=== PATIENT | female | born 1985 | race Hispanic/Latino ===

== ENCOUNTER 2024-08-29 06:57 | Emergency (ER) | payer SELFPAY ==
[2024-08-29 07:27] LABS: Absolute Eosinophils 0.1 K/uL (0-0.5); Absolute Lymphocytes (CBC) 2.5 K/uL (0.7-4.9); Absolute Monocytes 0.4 K/uL (0.1-1.3); Absolute Neutrophil 3.1 K/uL (1.8-8.0); Basophils % 0.3 % (0-1.3); Eosinophils % 1.1 % (0-4.4); Hematocrit 38.3 % (36.0-45.0); Hemoglobin 13.3 g/dL (12.0-15.0); Lymphocytes % 40.6 % (15.3-44.8); MCHC 34.8 g/dL (32.0-36.0); MPV 8.9 fL (7.6-11.3); Nucleated Red Blood Cells % 0.1 % (0-0); Platelets 202 thou/uL (152-406); Red Cell Distribution Width 12.7 % (12.1-15.2)
--- NOTE | 2024-08-29 07:37 | RAD REPORT ---
EXAM: Chest Single View HISTORY: 39 years Female CHEST PAIN COMPARISON: None. FINDINGS: LUNGS/PLEURA: The lungs are clear. No pleural effusions or pneumothorax. No pulmonary edema. CARDIAC/MEDIASTINUM: The cardiac silhouette is within normal limits. UPPER ABDOMEN: No significant abnormality. BONES: No acute abnormality. LINES/TUBES/OTHER: N/A IMPRESSION: No evidence of acute cardiopulmonary disease.
[2024-08-29 07:49] LABS: Anion Gap 9.6 mEq/L (5.0-15.0); BUN Blood Urea Nitrogen 9 mg/dL (7-18); Bicarbonate 26 mEq/L (21-32); Glomerular Filtration Rate 112 ml/min (=/>90); Glucose Level 99 mg/dL (74-106); NT PRO-BNP 56 pg/mL (<125); Potassium 3.6 mEq/L (3.5-5.1); Sodium Level 138 mEq/L (136-145)
[2024-08-29 07:56] LABS: Specific Gravity 1.017 (1.005-1.030)
[2024-08-29 07:57] LABS: Troponin High Sensitivity < 3.0 pg/mL (<58.9)
[2024-08-29 07:59] LABS: Specific Gravity 1.018 (1.005-1.030); Sqamous Epithelial <5 /HPF (None Seen); Urine Bacteria None Seen /HPF (<20); Urine Bilirubin NEGATIVE (Negative); Urine Blood Negative (Negative); Urine Clarity Turbid (Clear); Urine Color Light-Yellow (Yellow); Urine Culture Reflex Order NOT NEEDED; Urine Glucose NEGATIVE (Negative); Urine Ketones NEGATIVE (Negative); Urine Microscopic Reflex YN ORDER UMIC; Urine Mucus Slight /HPF (None Seen); Urine Nitrite NEGATIVE (Negative); Urine Protein NEGATIVE (Negative); Urine RBC <5 /HPF (None Seen); Urine Urobilinogen Normal (Normal); Urine WBC <5 /HPF (<5); Urine pH 5.5 (5.0-7.0)
[2024-08-29] MEDS ORDERED: NA CHLORIDE 0.9% 500 ML ONE (08:07)
[2024-08-29] MEDS ORDERED: MAGNES/ALUMIN/SIMET 30ML UCUP ONE (08:58)
[2024-08-29] MEDS ORDERED: KETOROLAC 30 MG/ML INJ ONE (08:58)
[2024-08-29] MEDS ORDERED: FAMOTIDINE 20 MG/2 ML VIAL IV ONE (08:58)
[2024-08-29] MEDS ORDERED: LIDOCAINE VISCOUS 2% 10ML ORAL SOLN ONE (08:58)
--- NOTE | 2024-08-29 09:25 | EDPHYS ---
Physician Documentation [facility] Name: Kendall Barba Age: 39 yrs Sex: Female : 1985 Arrival Date: 08/29/2024 Time: 06:57 Bed 6 Private MD: ED Physician Aly Belcher HPI: 08/29 07:30 This 39 yrs old Female presents to ER via Ambulatory with complaints of Chest rn Pain. 07:30 The patient or guardian reports chest pain that is located primarily in the anterior rn chest wall, left. 07:30 Onset: last night. The pain radiates to the left arm. The chest pain is described as rn sharp. Duration: The patient or guardian reports multiple episodes. Modifying factors: The symptoms are alleviated by nothing. the symptoms are aggravated by deep breath. Severity of pain: At its worst the pain was mild in the emergency department the pain is unchanged. The patient has not experienced similar symptoms in the past. Patient reports left-sided chest pain that radiates to left arm, has been happening intermittently over the last week. Patient reports other episodes that she feels lightheaded and dizzy. No shortness of breath. No recent illness or fever. No cough. No history of DVT or PE. No abdominal pain. No recent surgery. No leg swelling or pain. No hemoptysis. Does not smoke or vape.. Historical: - Allergies: 07:20 No Known Allergies; iw - Home Meds: 07:20 None [Active]; iw - PMHx: 07:20 None; iw - PSHx: 07:20 Cholecystectomy; iw - Immunization history:: Adult Immunizations up to date. - Infectious Disease History:: Denies. - Social history:: Smoking status: Patient denies any tobacco usage or history of. - Family history:: not pertinent. - Hospitalizations: : No recent hospitalization is reported. ROS: 07:30 Constitutional: Negative for fever, chills, and weight loss, Neck: Negative for injury, rn pain, and swelling, Cardiovascular: Negative for palpitations, and edema, Respiratory: Negative for shortness of breath, cough, wheezing, and pleuritic chest pain, Abdomen/GI: Negative for abdominal pain, nausea, vomiting, diarrhea, and constipation, MS/Extremity: Negative for injury and deformity, Skin: Negative for injury, rash, and discoloration, Neuro: Negative for headache, weakness, numbness, tingling, and seizure, Exam: 07:21 ECG was reviewed by the Attending Physician. rn 07:30 Constitutional: This is a well developed, well nourished patient who is awake, alert, rn and in no acute distress. Ambulatory to room without difficulty or assistance Cardiovascular: Regular rate and rhythm. No pulse deficits. Respiratory: No increased work of breathing, no retractions or nasal flaring. Abdomen/GI: Soft, non-tender MS/ Extremity: Pulses equal, no cyanosis. Neuro: Awake and alert, GCS 15 Vital Signs: 07:18 BP 121 / 69; Pulse 89; Resp 16; Pulse Ox 99% on R/A; Pain 5/10; iw 07:48 BP 98 / 64; Pulse 75; Resp 17; Temp 98.1; Pulse Ox 99% on R/A; iw 08:45 BP 103 / 62; Pulse 63; Resp 16; Pulse Ox 98% on R/A; iw 09:03 BP 102 / 83; Pulse 80; Resp 16; Pulse Ox 100% on R/A; Pain 6/10; hb 07:18 Pain Scale: Adult iw 09:03 Pain Scale: Adult hb MDM: 07:03 Medical Screening Exam initiated rn 09:23 Differential diagnosis: acute myocardial infarction, acute pericarditis, anxiety, rn costochondritis, esophagitis, gastritis, gastroesophageal reflux disease (GERD), pancreatitis, peptic ulcer disease, pleurisy, pneumonia, pneumothorax, pulmonary embolus. HEART Score: History: Slightly Suspicious (0), ECG: Normal (0), Age: < or = 45 years (0), Risk Factors: No Risk Factors Known (0), Troponin: < or = 1 x Normal Limit (0), Total Score = 0. Data reviewed: vital signs, nurses notes, lab test result(s), EKG, radiologic studies, plain films, and as a result, I will discharge patient. Counseling: I had a detailed discussion with the patient and/or guardian regarding the historical points, exam findings, and any diagnostic results supporting the discharge/admit diagnosis, lab results, radiology results, the need for outpatient follow up, to return to the emergency department if symptoms worsen or persist or if there are any questions or concerns that arise at home. Special discussion: Based on the patient's history, exam, and Dx evaluation, there is no indication for emergent intervention or inpatient Tx. It is understood by the patient/guardian that if the Sx's persist or worsen they need to return immediately for re-evaluation. I discussed with the patient/guardian in detail that at this point there is no indication for admission to the hospital. It is understood, however, that if the symptoms persist or worsen the patient needs to return immediately for re-evaluation. Based on the history and exam findings, there is no indication for further emergent testing or inpatient evaluation. I discussed with the patient/guardian the need to see the repairer cylinder heads for further evaluation of the symptoms. I discussed with the patient/guardian the need to see the primary care provider for further evaluation of the symptoms. ED course: No acute findings on workup, troponin negative x 2. Normal ECG. Recommend PCP and cardiology follow-up to rule out other causes of chest pain. Patient improved after GI cocktail. I have personally reviewed all of the results, including but not limited to blood tests and imaging deemed necessary to safely discharge this patient at this time. All results given to and printed out for patient. I personally went over all the results with the patient and answered all questions. Patient will follow-up with PCP and or specialist as discussed. Return precautions given and understood.. 09:32 ED course: Patient also reports just started exercising and going to the gym, could be rn muscular in origin with the pain with inspiration. Will follow-up with PCP for further guidance.. 08/29 07:14 Order name: Basic Metabolic Panel; Complete Time: 08/29 07:14 Order name: CBC with Diff; Complete Time: 08/29 07:14 Order name: D-Dimer; Complete Time: 08/29 07:14 Order name: NT PRO-BNP; Complete Time: 08/29 07:14 Order name: Troponin HS; Complete Time: 08/29 07:14 Order name: Test, Urine; Complete Time: 08/29 07:14 Order name: Urinalysis w/ reflexes; Complete Time: 08/29 08:52 Order name: Troponin High Sensitivity; Complete Time: 09:23 08/29 07:14 Order name: XRAY Chest (1 view); Complete Time: :26 07:14 Order name: Cardiac monitoring; Complete Time: : rn 08/29 07:14 Order name: EKG - Nurse/Tech; Complete Time: rn 08/29 07:14 Order name: IV Saline Lock; Complete Time: rn 08/29 07:14 Order name: Labs collected and sent; Complete Time: rn 08/29 07:14 Order name: O2 Per Protocol; Complete Time: rn 08/29 07:14 Order name: O2 Sat Monitoring; Complete Time: rn EC:21 Rate is 78 beats/min. Rhythm is regular. QRS [place] is Normal. IA interval is normal. QRS rn interval is normal. QT interval is normal. No Q waves. T waves are Normal. No ST changes noted. Clinical impression: Normal ECG. Interpreted by me. Reviewed by me. Administered Medications: 08:19 Drug: NS 0.9% IV 500 ml 500 ml IV at 1 bolus once; to be given as a bolus over 30 iw minutes Volume: 500 ml; Route: IV; Rate: 1 bolus; Site: right antecubital; 08:56 Follow up: Response: No adverse reaction; IV Status: Completed infusion; IV Intake: hb 500ml 09:03 Drug: Famotidine IVP 20 mg IVP once; dilute with 10 mL 0.9% NaCl; give over 2 minutes hb Route: IVP; Site: right antecubital; 09:36 Follow up: Response: No adverse reaction hb 09:03 Drug: GI Cocktail without - (Maalox PO 30 ml, Lidocaine Mucous Membrane 2 % 15 hb ml) PO once Route: PO; 09:36 Follow up: Response: No adverse reaction hb 09:03 Drug: Ketorolac IVP 15 mg IVP once Route: IVP; Site: right antecubital; hb 09:36 Follow up: Response: No adverse reaction hb Disposition Summary: 08/29/24 09:24 Discharge Ordered Notes: Location: Home rn Problem: new rn Symptoms: have improved rn Condition: Stable rn Diagnosis - Chest pain, unspecified rn Followup: rn - With: Private Physician - When: As needed - Reason: Recheck today's complaints, Re-evaluation by your physician Discharge Instructions: - Discharge Summary Sheet rn - Nonspecific Chest Pain, Adult rn - Pain Without a Known Cause rn Forms: - Medication Reconciliation Form rn - Antibiotic internet media planner - Prescription Opioid Use rn - Patient Portal Instructions rn - Leadership Thank You Letter rn Signatures: Dispatcher [employer] Kendra Skinner, Aly Rodriguez RN, MD MD rn Baxter, Heather, RN RN Corrections: (The following items were deleted from the chart) 07:14 07:14 BASIC METABOLIC PANEL+C.LAB.BRZ ordered. EDMS EDMS 07:14 07:14 CBC+H.LAB.BRZ ordered. EDMS EDMS 07:14 07:14 D-DIMER+COAG.LAB.BRZ ordered. EDMS EDMS 07:14 07:14 PROBNP+C.LAB.BRZ ordered. EDMS EDMS 07:14 07:14 Troponin High Sensitivity+C.LAB.BRZ ordered. EDMS EDMS 07:14 07:14 Chest Single View+RAD.RAD.BRZ ordered. EDMS EDMS
--- NOTE | 2024-08-29 09:25 | ER ---
Nurse's Notes [facility] Name: Kendall Barba Age: 39 yrs Sex: Female : 1985 Arrival Date: 08/29/2024 Time: 06:57 Bed 6 Private MD: Diagnosis: Chest pain, unspecified Presentation: 08/29 07:18 Chief complaint: Patient states: woke up with left sided chest pain radiating to left iw arm, worse when taking a deep breath , no injury, no cough, yesterday she felt dizzy and SOB. Coronavirus screen: At this time, the client does not indicate any symptoms associated with coronavirus-19. Ebola Screen: No symptoms or risks identified at this time. Initial Sepsis Screen: Does the patient meet any 2 criteria? No. Patient's initial sepsis screen is negative. Does the patient have a suspected source of infection? No. Patient's initial sepsis screen is negative. Risk Assessment: Do you want to hurt yourself or someone else? Patient reports no desire to harm self or others. Onset of symptoms was August 29, 2024. 07:18 Method Of Arrival: Ambulatory iw 07:18 Acuity: RICKEY 3 iw Historical: - Allergies: 07:20 No Known Allergies; iw - Home Meds: 07:20 None [Active]; iw - PMHx: 07:20 None; iw - PSHx: 07:20 Cholecystectomy; iw - Immunization history:: Adult Immunizations up to date. - Infectious Disease History:: Denies. - Social history:: Smoking status: Patient denies any tobacco usage or history of. - Family history:: not pertinent. - Hospitalizations: : No recent hospitalization is reported. Screenin:22 [facility] ED Fall Risk Assessment (Adult) History of falling in the last 3 months, hb including since admission No falls in past 3 months (0 pts) Confusion or Disorientation No (0 pts) Intoxicated or Sedated No (0 pts) Impaired Gait No (0 pts) Mobility Assist Device Used No (0 pt) Altered Elimination No (0 pt) Score/Fall Risk Level 0 - 2 = Low Risk Oriented to surroundings, Maintained a safe environment, Educated pt \T\ family on fall prevention, incl call for assistance when getting out of bed. 07:22 Abuse screen: Denies threats or abuse. Denies injuries from another. Nutritional hb screening: No deficits noted. Tuberculosis screening: No symptoms or risk factors identified. Assessment: 07:22 General: Appears in no apparent distress. Behavior is calm, cooperative. Pain: hb Complains of pain in anterior aspect of left upper chest Pain currently is 8 out of 10 on a pain scale. Neuro: Level of Consciousness is awake, alert, obeys commands, Oriented to person, place, time, situation. Cardiovascular: Patient's skin is warm and dry. Rhythm is regular. Respiratory: Respiratory effort is even, unlabored, Respiratory pattern is regular, symmetrical. GI: No signs and/or symptoms were reported involving the gastrointestinal system. : No signs and/or symptoms were reported regarding the genitourinary system. EENT: No signs and/or symptoms were reported regarding the EENT system. Derm: Skin is pink, warm \T\ dry. Musculoskeletal: No signs and/or symptoms reported regarding the musculoskeletal system. 08:19 Reassessment: Patient appears in no apparent distress at this time. Patient and/or iw family updated on plan of care and expected duration. Pain level reassessed. Patient is alert, oriented x 3, equal unlabored respirations, skin warm/dry/pink. 09:05 Reassessment: Patient appears in no apparent distress at this time. Patient and/or hb family updated on plan of care and expected duration. Pain level reassessed. Patient is alert, oriented x 3, equal unlabored respirations, skin warm/dry/pink. 09:35 Reassessment: Patient states feeling better. Patient states symptoms have improved. hb Vital Signs: 07:18 BP 121 / 69; Pulse 89; Resp 16; Pulse Ox 99% on R/A; Pain 5/10; iw 07:48 BP 98 / 64; Pulse 75; Resp 17; Temp 98.1; Pulse Ox 99% on R/A; iw 08:45 BP 103 / 62; Pulse 63; Resp 16; Pulse Ox 98% on R/A; iw 09:03 BP 102 / 83; Pulse 80; Resp 16; Pulse Ox 100% on R/A; Pain 6/10; hb 07:18 Pain Scale: Adult iw 09:03 Pain Scale: Adult hb ED Course: 07:02 Patient arrived in ED. gm2 07:03 Aly Belcher MD is Attending Physician. rn 07:06 Arvin, Kendra, RN is Primary Nurse. iw 07:19 Patient maintains SpO2 saturation greater than 95% on room air. hb 07:20 Triage completed. iw 07:20 Arm band placed on. iw 07:21 Initial lab(s) drawn, by me, sent to lab. Inserted saline lock: 20 gauge in right hb antecubital area, using aseptic technique. Blood collected. Flushed with 10 mL NS. 07:23 Patient has correct armband on for positive identification. Bed in low position. Call hb light in reach. Provided Education on: TESTS, RESULT TIMES. Client placed on continuous cardiac and pulse oximetry monitoring. NIBP monitoring applied. case monitor on. Pulse ox on. NIBP on. 07:33 XRAY Chest (1 view) In Process Unspecified. EDMS 07:40 No provider procedures requiring assistance completed. hb 07:48 Urinalysis w/ reflexes Sent. hb 07:48 Test, Urine Sent. hb 07:48 Urine collected: clean catch specimen, clear. hb 08:56 Troponin High Sensitivity Sent. hb 09:36 IV discontinued, intact, bleeding controlled, No redness/swelling at site. Pressure hb dressing applied. Administered Medications: 08:19 Drug: NS 0.9% IV 500 ml 500 ml IV at 1 bolus once; to be given as a bolus over 30 iw minutes Volume: 500 ml; Route: IV; Rate: 1 bolus; Site: right antecubital; 08:56 Follow up: Response: No adverse reaction; IV Status: Completed infusion; IV Intake: hb 500ml 09:03 Drug: Famotidine IVP 20 mg IVP once; dilute with 10 mL 0.9% NaCl; give over 2 minutes hb Route: IVP; Site: right antecubital; 09:36 Follow up: Response: No adverse reaction hb 09:03 Drug: GI Cocktail without - (Maalox PO 30 ml, Lidocaine Mucous Membrane 2 % 15 hb ml) PO once Route: PO; 09:36 Follow up: Response: No adverse reaction hb 09:03 Drug: Ketorolac IVP 15 mg IVP once Route: IVP; Site: right antecubital; hb 09:36 Follow up: Response: No adverse reaction hb Medication: 07:23 VIS not applicable for this client. hb Intake: 08:56 IV: 500ml; Total: 500ml. hb Outcome: 09:24 Discharge ordered by rn 09:36 Discharged to home ambulatory, 09:36 Condition: stable 09:36 Discharge instructions given to patient, Instructed on discharge instructions, follow up and referral plans. medication usage, Demonstrated understanding of instructions, follow-up care, medications, 09:37 Patient left the ED. hb Signatures: Dispatcher [employer] EDMS Kendra Sheridan RN RN iw Aly Belcher MD MD rn Baxter, Heather, RN RN Mary Machuca gm2 Corrections: (The following items were deleted from the chart) 08:20 07:48 BP 98 / 64; Pulse 75bpm; Resp 17bpm; Pulse Ox 99% RA; hb iw
--- NOTE | 2024-08-31 12:13 | EKG ---
Test Date: 2024-08-29 Test Time: 07:15:54 Research Biostatistician: TOD MEASUREMENT RESULTS: Intervals: Rate: 78 HI: 140 QRSD: 76 QT: 386 QTc: 440 [place]: P: 45 HI: 140 QRS: 64 T: 27 INTERPRETIVE STATEMENTS: Normal sinus rhythm with sinus arrhythmia Normal ECG No previous ECG available for comparison Electronically Signed On 08-31-24 12:08:43 CDT by Gustavo Jarquin
[2024-08-31 16:08] VITALS: TEMP 98.1
[2024-08-31 16:14] VITALS: BP 103/62; O2SAT 98
== END 2024-08-29 09:37 | disposition home or self-care (01) ==
LOC: ER 06:57
DX: R07.9 Chest pain, unspecified (principal)
CPT/HCPCS: 36415; 71045; 80048; 81001; 81025; 83880; 84484; 85025; 85379; 93005; 96361; 96374; 96375; 99285; J7040